=== PATIENT | male | born 2000 | race Caucasian/White ===

== ENCOUNTER 2022-04-15 00:10 | Emergency (ER) | payer BC, SELFPAY ==
--- NOTE | ~2022-04-15 | CT_ITS ---
EXAMINATION: CT abdomen pelvis wo con DATE: 04/15/2022 00:59 INDICATION: Right lower quadrant pain, nausea and vomiting TECHNIQUE: Computed tomography (CT) of the abdomen and pelvis was performed without intravenous contr ast. Automated exposure control and iterative reconstruction technique were employed. The dose-length product was 303.24 mGy-cm. COMPARISON: None FINDINGS: Lung bases are clear. Heart size is normal. No pericardial or pleural effusion. Liver, gallbladder, s pleen, pancreas, bilateral adrenal glands and left kidney are normal. 1.2 cm cyst at the upper pole o f the right kidney. 2 mm stone at a lower pole calyx of the right kidney. There is mild right hydrour eteronephrosis extending to a pair of 304 mm stones in the distalmost right ureter approximately 1.5 cm proximal to the ureterovesicular junction. No abnormal bowel wall thickening or obstruction. Parti ally decompressed bladder is unremarkable. No free intraperitoneal gas or fluid. No pathologically en larged abdominal or pelvic lymphadenopathy. Bones are unremarkable. IMPRESSION: 1. Right nephrolithiasis with pair of leads partially obstructing 3-4 mm stones in the distal most ri ght ureter resulting in mild right hydroureteronephrosis. Reviewed, dictated and finalized at location A. IMPRESSION: 1. Right nephrolithiasis with pair of leads partially obstructing 3-4 mm stones in the distal most right ureter resulting in mild right hydroureteronephrosis.
[2022-04-15 00:16] VITALS: BP 124/80; PULSE 84; RESP 18; TEMP 36.2; O2SAT 100
--- NOTE | 2022-04-15 00:29 | ED.ABDPAIN ---
HPI - Abdominal Pain General Chief Complaint: Abdominal Pain Stated Complaint: abd pain rlq Time Seen by Provider: 04/15/22 00:22 History of Present Illness HPI narrative: Patient is a 21-year-old male here for evaluation of right lower quadrant pain for the past 5 hours. Patient states the pain is intermittent in nature and is severe when it is present. He has not attempted any medications for his pain. Last ate [employer] fries about 6 hours ago, did not develop pain afterwards. States that he has had some trouble pushing on his urine denies dysuria or hematuria. Patient additionally reports nausea and about 5 episodes of vomiting nonbloody/nonbilious emesis tonight. Denies sick contacts. Denies diarrhea, constipation, fevers, chills, testicular pain. Related Data Allergies Allergy/AdvReac Type Severity Reaction Status Date / Time No Known Allergies Allergy Unverified 04/15/22 00:47 Review of Systems Review of Systems: Gen.: Denies fevers or chills Eyes: Denies eye pain or visual change ENT: Denies congestion Respiratory: Denies shortness of breath or cough CV: Denies chest pain or palpitations GI: Reports abdominal pain, nausea, vomiting. Denies diarrhea denies burning, urgency, frequency or hematuria Musculoskeletal: Denies back pain or muscle pain Neuro: Denies numbness, tingling, weakness or focal weakness Skin: Denies rash Except as documented, all other systems reviewed and negative [facility] Surgical History Surgical History History of abdominal surgery Family History Family History (Updated 03/17/22 @ 10:35 by Abelardo Levin APRN) Mother Hypertension Social History Social History (Updated 03/17/22 @ 10:52 by Abelardo Levin APRN) Smoking status: Never smoker Alcohol intake: current Alcohol use details: weekend drinker Substance use: current Substance use type: marijuana 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 CARDIOVASCULAR: Regular rate and rhythm without murmurs rubs or gallops. ABDOMINAL: Tender to palpation of right lower quadrant. Soft, nondistended, no rebound tenderness or guarding. MUSCULOSKELETAL: Moves all extremities. No clubbing, cyanosis or edema. NEURO: Awake and alert. Following commands, speech normal, no focal deficits SKIN: Warm, dry. No rashes lesions or abrasions PSYCHIATRIC: Normal affect/mood. Course Vital Signs Vital signs: Vital Signs Temperature 97.2 F L 04/15/22 00:16 Pulse Rate 84 04/15/22 00:16 Respiratory Rate 18 04/15/22 00:16 Blood Pressure 124/80 04/15/22 00:16 Pulse Oximetry 100 04/15/22 00:16 Oxygen Delivery Room Air 04/15/22 00:16 Temperature 97.2 F L 04/15/22 00:16 Pulse Rate 79 04/15/22 03:46 Respiratory Rate 18 04/15/22 03:46 Blood Pressure 120/78 04/15/22 03:46 Pulse Oximetry 97 04/15/22 03:46 Oxygen Delivery Room Air 04/15/22 00:16 MDM - Abdominal Pain MDM Narrative Medical decision making narrative: 21-year-old male here for evaluation of right lower quadrant pain, nausea and vomiting today. Patient's vital signs are normal, he is tender to palpation in the right lower quadrant with no rebound tenderness or guarding. Differential includes nephrolithiasis, gastroenteritis, appendicitis, gastritis. Patient more comfortable after Zofran , he is no longer having pain and declining toradol. CT scan with evidence of 2 distal kidney stones. He has no evidence of UTI, leukocytosis on labs and he is pain free. The stone is distal, <5 mm and likely to pass. Feel he is appropriate for outpatient management. Will send with ur
[2022-04-15 00:44] VITALS: BP 111/84; PULSE 78; RESP 18; O2SAT 100
--- NOTE | 2022-04-15 00:52 | PC.NURSE ---
Pt to CT at this time.
[2022-04-15 00:54] LABS: Basophils Absolute Auto 0.1 K/mm3 (0.0-0.1); Basophils Percent Auto 0.8 % (0.2-1.2); Eosinophils Absolute Auto 0.1 K/mm3 (0-0.3); Eosinophils Percent Auto 0.8 % (0-4.4); Hematocrit 43.4 % (42.0-52.0); Hemoglobin 14.5 g/dL (14.0-18.0); Immature Granulocyte Absolute 0.01 K/mm3 (0.00-0.031); Immature Granulocyte Percent A 0.1 % (0-0.5); Lymphocytes Absolute Auto 2.14 K/mm3 (0.9-3.2); Lymphocytes Percent Auto 26.9 % (18.3-44.2); Mean Corpuscular HGB Conc 33.4 g/dl (32-36); Mean Corpuscular Hemoglobin 30.1 pg (26-34); Mean Corpuscular Volume 90.2 fl (80-100); Mean Platelet Volume 10.4 fl (7.4-10.4); Monocytes Absolute Auto 0.5 K/mm3 (0.1-0.6); Monocytes Percent Auto 6.2 % (2.6-8.5); Neutrophils Absolute Auto 5.2 K/mm3 (1.3-6.7); Neutrophils Percent Auto 65.2 % (45.5-73.1); Platelet Count Result 404 k/mm3 (150-375); Red Blood Count 4.81 M/mm3 (4.6-6.20); Red Cell Distribution Width 12.2 % (11.5-14.5)
[2022-04-15] MEDS: ONDANSETRON INJ 4 MG/2 ML VIAL IV PUSH (01:03)
[2022-04-15] MEDS: SODIUM CHLORIDE 0.9% IV 1,000 ML 999 ML IV CONT (01:03)
[2022-04-15 01:07] LABS: Alanine Aminotransferase 24 U/L (6-50); Albumin Level 4.6 g/dL (3.5-5.1); Alkaline Phosphatase 79 U/L (38-126); Anion Gap 6 mmol/L (8-16); Aspartate Amino Transferase 23 U/L (17-59); Bilirubin,Total 1.3 mg/dL (0.2-1.3); Blood Urea Nitrogen 7 mg/dL (9-20); Carbon Dioxide 25 mmol/L (22-30); Chloride 108 mmol/L (98-107); Estimated CRCL calculation 108 ml/min; Estimated Glomerular Filt Rate > 60; Glucose 96 mg/dL (65-110); Lipase 151 U/L (23-300); Potassium 3.7 mmol/L (3.4-5.0); Sodium 139 mmol/L (137-145)
[2022-04-15 02:02] LABS: Appearance Urine Clear (Clear); Bilirubin Urine Negative (Negative); Blood Urine 1+ (Negative); Color Urine Yellow (Yellow); Glucose Urine UA Negative (Negative); Ketones Urine Trace mg/dL (Negative); Leukocyte Esterase Ur Negative LEU/UL (Negative); Nitrate Urine Negative (Negative); Protein Urine Negative (Negative); Specific Grav Ur 1.015 (1.001-1.035); pH Urine 8.5 (5.0-9.0)
[2022-04-15 02:11] LABS: Bacteria Urine Trace /hpf; Mucus Urine Rare /lpf; RBC Urine 21-50 /hpf (0-2)
[2022-04-15 02:12] LABS: Add Urine Microscopic? YES
--- NOTE | 2022-04-15 03:09 | PC.NURSE ---
Pt denies pain currently, does not want Toradol at this time.
[2022-04-15] MEDS: KETOROLAC 15 MG/ML VIAL (*BKC) IV PUSH (03:41)
[2022-04-15 03:46] VITALS: BP 120/78; PULSE 79; RESP 18; O2SAT 97
== END 2022-04-15 03:44 | disposition home or self-care (01) ==
PROVIDERS: Emergency Provider Family Medicine; PCP Internal Medicine
DX: N13.2 Hydronephrosis with renal and ureteral calculous obstruction (principal)
CPT/HCPCS: 36415; 74176; 80053; 81001; 83690; 85025; 96361; 96374; 96375; 99284; J1885; J2405; J7030